=== PATIENT | female | born 1985 ===

== ENCOUNTER 2019-03-28 16:52 | Emergency (ER) | payer OTHER, SELFPAY ==
[2019-03-28 17:08] VITALS: BP 90/62; PULSE 69; RESP 16; TEMP 36.2; O2SAT 100; BMI 23.3
--- NOTE | 2019-03-28 17:16 | PC.NURSE ---
able to ambulate with steady gait.
--- NOTE | 2019-03-28 18:36 | DI.RAD.S_ITS ---
PROCEDURE: XR KNEE RT 3V INDICATIONS: bilateral knee pain, fell on knees 6 days ago, pain, bruise TECHNIQUE: 3 views of the knee were acquired. COMPARISON: [facility], CR, XR THORACIC SPINE 2V, 03/28/2019, 18:44. [facility], CR, XR WRIST RT MIN 3V, 03/28/2019, 18:44. [facility], CR, XR KNEE LT 3V, 03/28/2019, 18:44. [facility], CR, XR LUMBAR SPINE 2-3V, 03/28/2019, 18:44. FINDINGS: Bones: No fractures or dislocations. No suspicious bony lesions. Mild medial and lateral femorotibial joint space narrowing can be seen. On the sunrise view, there is mild patellofemoral joint space narrowing seen. Soft tissues: No joint effusion. No suspicious soft tissue calcifications. IMPRESSION: No acute bony abnormality is seen. Premature joint space narrowing. Dictated by: Fidel Miller M.D. on 03/28/2019 at 19:30 Approved by: Fidel Miller M.D. on 03/28/2019 at 19:31
--- NOTE | 2019-03-28 18:36 | DI.RAD.S_ITS ---
PROCEDURE: XR LUMBAR SPINE 2-3V INDICATIONS: mid to lower back pain, fall 6 days ago TECHNIQUE: 3 views of the lumbar spine were acquired. COMPARISON: [facility], , XR THORACIC SPINE 2V, 03/28/2019, 18:44. FINDINGS: Bones: 5 [id number] vertebrae are present. No vertebral body compression fractures. No suspicious bony lesions. Mild levoconvex scoliotic curvature is noted. Mild disc space narrowing is seen at the L5-S1 level. The disc heights otherwise appear well-preserved. Soft tissues: Overlying bowel gas pattern is normal. No suspicious soft tissue calcifications. IMPRESSION: No acute plain film abnormality is seen. Focal L5-S1 joint space narrowing. Levoconvex lumbar scoliotic curvature. Dictated by: Fidel Miller M.D. on 03/28/2019 at 19:16 Approved by: Fidel Miller M.D. on 03/28/2019 at 19:17
--- NOTE | 2019-03-28 18:36 | DI.RAD.S_ITS ---
PROCEDURE: XR KNEE LT 3V INDICATIONS: bilateral knee pain, fell on knees 6 days ago, pain, bruise TECHNIQUE: 3 views of the knee were acquired. COMPARISON: [facility], CR, XR THORACIC SPINE 2V, 03/28/2019, 18:44. [facility], CR, XR WRIST RT MIN 3V, 03/28/2019, 18:44. [facility], CR, XR KNEE RT 3V, 03/28/2019, 18:44. [facility], CR, XR LUMBAR SPINE 2-3V, 03/28/2019, 18:44. FINDINGS: Bones: No fractures or dislocations. No suspicious bony lesions. There is mild bilateral medial femorotibial joint space narrowing seen. On the sunrise view, there is mild patellofemoral joint space narrowing seen. Soft tissues: No joint effusion. No suspicious soft tissue calcifications. IMPRESSION: No acute bony injury is seen. Premature joint space narrowing. Dictated by: Fidel Miller M.D. on 03/28/2019 at 19:29 Approved by: Fidel Miller M.D. on 03/28/2019 at 19:30
--- NOTE | 2019-03-28 18:38 | DI.RAD.S_ITS ---
PROCEDURE: XR WRIST RT MIN 3V INDICATIONS: fall 6 days ago, pain in wrist, hx of fracture TECHNIQUE: 4 views of the wrist were acquired. COMPARISON: [facility], CR, XR THORACIC SPINE 2V, 03/28/2019, 18:44. [facility], CR, XR KNEE RT 3V, 03/28/2019, 18:44. [facility], CR, XR KNEE LT 3V, 03/28/2019, 18:44. [facility], CR, XR LUMBAR SPINE 2-3V, 03/28/2019, 18:44. FINDINGS: Bones: There is deformity seen of the distal radius, with a sclerotic line. No lucent fractures can be seen. No suspicious lytic or blastic lesions are seen. Scaphoid view: No navicular fractures are seen. Soft tissues: No suspicious soft tissue calcifications. IMPRESSION: No acute fractures are seen. Apparent remote distal radius fracture comment healing change. If there is snuffbox tenderness (or other clinical suspicion for a fracture not seen on these images) then a repeat examination would be recommended in 10 to 14 days, following splinting. Dictated by: Fidel Miller M.D. on 03/28/2019 at 19:31 Approved by: Fidel Miller M.D. on 03/28/2019 at 19:32
--- NOTE | 2019-03-28 18:38 | DI.RAD.S_ITS ---
PROCEDURE: XR THORACIC SPINE 2V INDICATIONS: mid and low back pain, fall 6 days ago TECHNIQUE: 3 views of the thoracic spine were acquired. COMPARISON: [facility], CR, XR LUMBAR SPINE 2-3V, 03/28/2019, 18:44. FINDINGS: Bones: No fractures or dislocations. No suspicious bony lesions. 12 pairs of ribs are noted, and appear intact where visualized. S-shaped scoliotic curvature is seen. Accentuated thoracic kyphosis is seen. Soft tissues: No paravertebral stripe thickening. IMPRESSION: No acute bony injury is seen. Dictated by: Fidel Miller M.D. on 03/28/2019 at 19:18 Approved by: Fidel Miller M.D. on 03/28/2019 at 19:18
--- NOTE | 2019-03-28 18:48 | ED.FALL ---
HPI - Fall <YASMIN GregoryP - Last Filed: 03/29/19 00:49> General Chief Complaint: Fall Stated Complaint: fall at work on 03/21, pain in knees and hands Time Seen by Provider: 03/28/19 18:12 Source: patient Mode of arrival: Ambulatory Limitations: language barrier History of Present Illness HPI Narrative: This is a 33-year-old female Jason-speaking, nonsmoker, who presents to ED complaining bilateral knee pain, bilateral anterior and posterior shoulder, bilateral neck, bilateral wrist, mid to low back pain after she fell forward at work 6 days ago. Patient has been using icy hot and ibuprofen but no relief with pain. Patient is ambulatory but painful to walk on bilateral knees. Patient reports pain as 7 to 8/10 constant which worsen with movement, touched and improves with rest. Patient denies injuring her head, mid cervical tenderness, weakness//tingling/ numbness to extremities. Patient has a history of right wrist fracture and surgical we repaired. LMP 03/15/2019. Related Data Previous Rx's Medication Instructions Recorded cyclobenzaprine 5 - 10 mg PO BID PRN #10 tab 03/28/19 lidocaine 1 patch TOP DAILY #30 each 03/28/19 Allergies Allergy/AdvReac Type Severity Reaction Status Date / Time No Known Drug Allergies Allergy Verified 03/28/19 17:14 Review of Systems <YASMIN GregoryP - Last Filed: 03/29/19 00:49> Review of Systems Narrative: General: Denies fever, chills, fatigue, malaise, sweats. HEENT: Denies sinus pain, ear pain, sore throat, difficulty swallowing, dizziness. Respiratory: Denies dyspnea, cough, wheezing, hemoptysis, sputum. Cardiovascular: Denies chest pain, palpitations, orthopnea, edema. Gastrointestinal: Denies nausea, vomiting, abdominal pain, diarrhea, constipation, melena. : Denies dysuria, frequency, incontinence, hematuria, urinary retention. Musculoskeletal: HPI Skin: Denies rash, skin lesions, or other. Neurologic: Denies weakness, headache, numbness, change in speech, confusion, seizures, incoordination. Psychiatric: No concerning psychosocial issues. 12-point review of systems is negative except for those stated above. Patient History <TANVI Gregory - Last Filed: 03/29/19 00:49> Medical History Right wrist fracture (Acute) Social History Smoking Status: Former smoker Smoking Status: Former smoker Substance Use Type: does not use Exam <TANVI Gregory - Last Filed: 03/29/19 00:49> Narrative Exam Narrative: General appearance: well developed, well nourished, in no acute distress. Head: normocephalic, atraumatic, no scalp lesions, non-tender. ENT: Hearing grossly intact. Nose without bleeding, purulent discharge, septal hematoma or deviation. Mucous membrane moist, no mucosal lesion. Throat without erythema, tonsillar hypertrophy or exudate. Uvula in midline, airway patent. Neck/Thyroid: neck supple, no step-offs, full range of motion, no visible masses or meningeal signs. No JVD, no mid cervical tenderness to palpate, no lymphadenopathy. Skin: no suspicious rashes, lesions over visible areas. Warm and dry and appropriate color for ethnicity. Heart: no clubbing, no cyanosis, no edema. S1 and S2 normal. RRR w/o murmurs, clicks, or bruits. Lungs: Breathing even and unlabored. No stridor. No accessory muscles used. Able to speak in full sentences. Chest: normal shape and expansion. Abdomen: non-obese, non-distended. Neurologic: alert and oriented. 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 Psych: good eye contact, normal affect. Initial Vital Signs Initial Vital Signs: Vital Signs Temperature 97.1 F L 03/28/19 17:08 Pulse Rate 69 03/28/19 17:08 Respiratory Rate 16 03/28/19 17:08 Blood Pressure 90/62 03/28/19 17:08 Pulse Oximetry 100 03/28/19 17:08 Back/Spine/Pelvis Thoracic/Lumbar Spine: thoracic and lumbar spine normal to inspection, No surgical scar(s) present, thoraco-lumbar ROM normal, pain with thoraco-lumbar ROM, paraspinal tenderness, thoraco-lumbar ROM limited (Due to pain) and thoraco-lumbar spasm Extrem Right upper extremity: shoulder/upper arm Details: normal to inspection, tenderness Location: of the A-C joint, of the scapula and of the mid-shaft humerus and normal ROM, elbow/forearm Details: normal to inspection; no swelling, wrist Details: normal to inspection (old surgical scars on dorsal aspect on wrist), normal ROM, normal vascular exam and radial pulse present; no swelling, no lacerations, no ecchymosis, no crepitus and no deformity and hand Details: normal to inspection, neurosensory exam normal, tendon exam normal, vascular exam Details: radial pulse present, normal ROM of fingers and no swelling; no tenderness Left upper extremity: normal to inspection, normal capillary refill, shoulder/upper arm Details: inspection abnormal and tenderness Location: of the A-C joint, of the scapula and of the mid-shaft humerus, elbow/forearm Details: normal to inspection; no tenderness, wrist Details: normal to inspection, tenderness and normal ROM; no swelling, no unusual warmth, no lacerations, no ecchymosis and no crepitus and hand Details: normal to inspection, normal capillary refill, neuromotor exam normal, neurosensory exam normal, tendon exam normal, normal ROM of fingers and no swelling; no unusual warmth; no edema Right lower extremity: knee Details: abnormal to inspection, tenderness, swelling, normal ROM, knee ligament exam normal and ecchymosis; no abrasions, no lacerations and no deformity, lower leg Details: normal to inspection; no tenderness, ankle Details: normal to inspection; no tenderness and foot Details: normal to inspection; no tenderness Left lower extremity: knee Details: abnormal to inspection, tenderness, swelling (boggy in medial knee), normal ROM and ecchymosis; no crepitus, no deformity and no unusual warmth, lower leg Details: normal to inspection; no tenderness, ankle Details: normal to inspection; no tenderness and foot Details: normal to inspection; no tenderness <Stephanie De La Rosa DO - Last Filed: 03/29/19 20:40> Initial Vital Signs Initial Vital Signs: Vital Signs Temperature 97.1 F L 03/28/19 17:08 Pulse Rate 69 03/28/19 17:08 Respiratory Rate 16 03/28/19 17:08 Blood Pressure 90/62 03/28/19 17:08 Pulse Oximetry 100 03/28/19 17:08 Scores <Ketan MaTANVI Hollingsworth - Last Filed: 03/29/19 00:49> GCS [place] coma scale eye opening: Spontaneous Bertin coma scale verbal response: Orientated Bertin coma scale motor response: Obey commands Bertin coma scale total score: 15 Course <Ketan MariTANVI whitney - Last Filed: 03/29/19 00:49> Orders Ordered: Discontinued Medications Acetaminophen (Tylenol) 650 mg PO NOW ONE Stop: 03/28/19 18:37 Last Admin: 03/28/19 19:30 Dose: 650 mg Documented by: ANDI Ketorolac Tromethamine (Toradol) 30 mg IM NOW ONE Stop: 03/28/19 18:37 Last Admin: 03/28/19 19:30 Dose: 30 mg Documented by: ANDI Lidocaine (Lidoderm) 3 each TOP NOW ONE Stop: 03/28/19 19:51 Last Admin: 03/28/19 20:26 Dose: 3 each Documented by: ESTELLA Morphine Sulfate (Morphine) 4 mg IV NOW ONE Stop: 03/28/19 18:56 Last Admin: 03/28/19 20:29 Dose: Not Given Documented by: ANDI Vital Signs Vital signs: Vital Signs - 8 hr 03/28/19 17:08 03/28/19 20:16 Temperature 97.1 F L Pulse Rate 69 63 Respiratory Rate 16 18 Blood Pressure 90/62 Blood Pressure [Left Arm] 113/67 Pulse Oximetry 100 100 <Stephanie De La Rosa DO - Last Filed: 03/29/19 20:40> Orders Ordered: Discontinued Medications Acetaminophen (Tylenol) 650 mg PO NOW ONE Stop: 03/28/19 18:37 Last Admin: 03/28/19 19:30 Dose: 650 mg Documented by: ANDI Ketorolac Tromethamine (Toradol) 30 mg IM NOW ONE Stop: 03/28/19 18:37 Last Admin: 03/28/19 19:30 Dose: 30 mg Documented by: ANDI Lidocaine (Lidoderm) 3 each TOP NOW ONE Stop: 03/28/19 19:51 Last Admin: 03/28/19 20:26 Dose: 3 each Documented by: ESTELLA Morphine Sulfate (Morphine) 4 mg IV NOW ONE Stop: 03/28/19 18:56 Last Admin: 03/28/19 20:29 Dose: Not Given Documented by: KDEBONI Vital Signs Vital signs: Vital Signs - 8 hr 03/28/19 17:08 03/28/19 20:16 Temperature 97.1 F L Pulse Rate 69 63 Respiratory Rate 16 18 Blood Pressure 90/62 Blood Pressure [Left Arm] 113/67 Pulse Oximetry 100 100 MDM - Fall <TANVI Gregory - Last Filed: 03/29/19 00:49> Differential Diagnosis Differential diagnosis: Likely fracture of wrist and other (contusion of knee, fracture of knee, shoulder strain, back strain, wrist sprain) Medical Records Attestation: I reviewed the patient's medical records. Imaging Data XR-Wrist R: Radiologist's Impression: [address] [address] XRay Report Signed Patient: Earline Hall#: [id number] : 1985Acct:[id number] Age/Sex: 33 / FDate of Service: 03/28/19 Loc: ED Accession Number: [id number] Procedure: XR wrist RT min 3V Ordering Provider: Ketan Leon PROCEDURE: XR WRIST RT MIN 3V INDICATIONS: fall 6 days ago, pain in wrist, hx of fracture TECHNIQUE: 4 views of the wrist were acquired. COMPARISON: [facility], CR, XR THORACIC SPINE 2V, 03/28/2019, 18:44. [facility], CR, XR KNEE RT 3V, 03/28/2019, 18:44. [facility], CR, XR KNEE LT 3V, 03/28/2019, 18:44. [facility], CR, XR LUMBAR SPINE 2-3V, 03/28/2019, 18:44. FINDINGS: Bones: There is deformity seen of the distal radius, with a sclerotic line. No lucent fractures can be seen. No suspicious lytic or blastic lesions are seen. Scaphoid view: No navicular fractures are seen. Soft tissues: No suspicious soft tissue calcifications. IMPRESSION: No acute fractures are seen. Apparent remote distal radius fracture comment healing change. If there is snuffbox tenderness (or other clinical suspicion for a fracture not seen on these images) then a repeat examination would be recommended in 10 to 14 days, following splinting. Dictated by: Fidel Miller M.D. on 03/28/2019 at 19:31 Approved by: Fidel Miller M.D. on 03/28/2019 at 19:32 XR-Thoraci: Radiologist's Impression: [address] [address] XRay Report Signed Patient: Earline Hall#: [id number] : 1985Acct:[id number] Age/Sex: 33 / FDate of Service: 03/28/19 Loc: ED Accession Number: [id number] Procedure: XR thoracic spine 2V Ordering Provider: Ketan Leon PROCEDURE: XR THORACIC SPINE 2V INDICATIONS: mid and low back pain, fall 6 days ago TECHNIQUE: 3 views of the thoracic spine were acquired. COMPARISON: [facility], XR LUMBAR SPINE 2-3V, 03/28/2019, 18:44. FINDINGS: Bones: No fractures or dislocations. No suspicious bony lesions. 12 pairs of ribs are noted, and appear intact where visualized. S-shaped scoliotic curvature is seen. Accentuated thoracic kyphosis is seen. Soft tissues: No paravertebral stripe thickening. IMPRESSION: No acute bony injury is seen. Dictated by: Fidel Miller M.D. on 03/28/2019 at 19:18 Approved by: Fidel Miller M.D. on 03/28/2019 at 19:18 XR-Lumbar: Radiologist's Impression: [address] [address] XRay Report Signed Patient: Earline Hall#: [id number] : 1985Acct:[id number] Age/Sex: 33 / FDate of Service: 03/28/19 Loc: ED Accession Number: [id number] Procedure: XR lumbar spine 2-3V Ordering Provider: Ketan Leon PROCEDURE: XR LUMBAR SPINE 2-3V INDICATIONS: mid to lower back pain, fall 6 days ago TECHNIQUE: 3 views of the lumbar spine were acquired. COMPARISON: [facility], XR THORACIC SPINE 2V, 03/28/2019, 18:44. FINDINGS: Bones: 5 [id number] vertebrae are present. No vertebral body compression fractures. No suspicious bony lesions. Mild levoconvex scoliotic curvature is noted. Mild disc space narrowing is seen at the L5-S1 level. The disc heights otherwise appear well-preserved. Soft tissues: Overlying bowel gas pattern is normal. No suspicious soft tissue calcifications. IMPRESSION: No acute plain film abnormality is seen. Focal L5-S1 joint space narrowing. Levoconvex lumbar scoliotic curvature. Dictated by: Fidel Miller M.D. on 03/28/2019 at 19:16 Approved by: Fidel Miller M.D. on 03/28/2019 at 19:17 XR-Knee RT: Radiologist's Impression: [address] [address] XRay Report Signed Patient: Earline Hall#: [id number] : 1985Acct:[id number] Age/Sex: 33 / FDate of Service: 03/28/19 Loc: ED Accession Number: [id number] Procedure: XR knee RT 3V Ordering Provider: Ketan Leon PROCEDURE: XR KNEE RT 3V INDICATIONS: bilateral knee pain, fell on knees 6 days ago, pain, bruise TECHNIQUE: 3 views of the knee were acquired. COMPARISON: [facility], CR, XR THORACIC SPINE 2V, 03/28/2019, 18:44. [facility], CR, XR WRIST RT MIN 3V, 03/28/2019, 18:44. [facility], CR, XR KNEE LT 3V, 03/28/2019, 18:44. [facility], CR, XR LUMBAR SPINE 2-3V, 03/28/2019, 18:44. FINDINGS: Bones: No fractures or dislocations. No suspicious bony lesions. Mild medial and lateral femorotibial joint space narrowing can be seen. On the sunrise view, there is mild patellofemoral joint space narrowing seen. Soft tissues: No joint effusion. No suspicious soft tissue calcifications. IMPRESSION: No acute bony abnormality is seen. Premature joint space narrowing. Dictated by: Fidel Miller M.D. on 03/28/2019 at 19:30 Approved by: Fidel Miller M.D. on 03/28/2019 at 19:31 XR-Knee LT: Radiologist's Impression: [address] [address] XRay Report Signed Patient: Earline Hall#: [id number] : 1985Acct:[id number] Age/Sex: 33 / FDate of Service: 03/28/19 Loc: ED Accession Number: [id number] Procedure: XR knee LT 3V Ordering Provider: Ketan Leon PROCEDURE: XR KNEE LT 3V INDICATIONS: bilateral knee pain, fell on knees 6 days ago, pain, bruise TECHNIQUE: 3 views of the knee were acquired. COMPARISON: [facility], CR, XR THORACIC SPINE 2V, 03/28/2019, 18:44. [facility], CR, XR WRIST RT MIN 3V, 03/28/2019, 18:44. [facility], CR, XR KNEE RT 3V, 03/28/2019, 18:44. [facility], CR, XR LUMBAR SPINE 2-3V, 03/28/2019, 18:44. FINDINGS: Bones: No fractures or dislocations. No suspicious bony lesions. There is mild bilateral medial femorotibial joint space narrowing seen. On the sunrise view, there is mild patellofemoral joint space narrowing seen. Soft tissues: No joint effusion. No suspicious soft tissue calcifications. IMPRESSION: No acute bony injury is seen. Premature joint space narrowing. Dictated by: Fidel Miller M.D. on 03/28/2019 at 19:29 Approved by: Fidel Miller M.D. on 03/28/2019 at 19:30 MDM Narrative Medical decision making narrative: Language translation line contacted for translation services. This is a 33 year old female who had fell forward and landed on bilateral knees while fall on out stretched bilateral hands 6 days ago. 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 Patient had mild ecchymosis in swollen right knee and slightly boggy left knee. She was able to flex and extend bilateral knees the patient reports discomfort with walking. Negative bilateral x-ray test for fractures or dislocation. Sensation and distal pulses were intact. Otherwise, benign physical exam in bilateral wrists with good pulses, sensation, mobility. Patient had history of fracture on right wrist with surgical repair. X-ray test was obtained on right wrist with negative fracture or dislocation. Patient complain of bilateral shoulder pain mother was able to forward flex, abduct, rotate internally and externally without much difficulty. Patient complain of bilateral upper arm discomfort with benign physical exam. Patient denies tingling, numbness, weakness to fingertips. X-ray test was deferred. Patient complain of bilateral cervical neck tenderness but denied with cervical tenderness to palpate. No x-ray test was deferred. Thoraci and lumbar back xray tests did not show acute findings. Patient was medicated with Tylenol, IM Toradol and Lidocaine patches on bilateral neck and low back. Patient reports improved discomfort. Patient given work note off note till Monday. Discharged to home with Flexeril and lidocaine patch for as needed use and advised to use [id number] Tylenol or Motrin. Return precautions were discussed with the patient and patient verbalized understanding and agrees with treatment plan. L&I documentation is completed and a copy provided to patient. Discharge Plan Departure Patient Disposition: Home Clinical Impression: Shoulder strain Qualifiers: Encounter type: initial encounter Laterality: unspecified laterality Qualified Code(s): S46.919A - Strain of unspecified muscle, fascia and tendon at shoulder and upper arm level, unspecified arm, initial encounter Back strain Qualifiers: Encounter type: initial encounter Qualified Code(s): S39.012A - Strain of muscle, fascia and tendon of lower back, initial encounter Contusion of knee Qualifiers: Encounter type: initial encounter Laterality: unspecified laterality Qualified Code(s): S80.00XA - Contusion of unspecified knee, initial encounter Strain of both wrists Qualifiers: Encounter type: initial encounter Qualified Code(s): S66.911A - Strain of unspecified muscle, fascia and tendon at wrist and hand level, right hand, initial encounter Discharge Date/Time: 03/28/19 21:45 Instructions: DI for Contusion, DI for Cervical Muscle Strain, DI for Back Strain or Sprain Activity Restrictions/Additional Instructions: You have been diagnosed with [contusion to bilateral wrist, bilateral knees, strain on your shoulder, upper arm, and back from falling during work]. What to do: *Take your medications as directed. You can take Tylenol 650 mg up to 4 times a day as needed for discomfort. Ibuprofen 400 mg 3 to 4 times a day with food needed for discomfort. Flexeril 5-10 mg to relax muscle 1 to 2 times a day. This medicine may cause drowsiness so please do not drive, drink alcohol or operate heavy equipments. Lidocaine patch for pain is stays on for 12 hours and off for 12 hours. *Follow up with your primary care provider in 2-3 days, call for an appointment. Let them know you were seen in the ED and that we asked you to be seen in follow up. *Return to ED if you have any new, worsening, or concerning symptoms, such as [increasing pain, chest pain, breathing difficulty, unable to tolerate fluids, fever or any acute concerns]. Prescriptions: New cyclobenzaprine 5 mg tablet 5 - 10 mg PO BID PRN (Reason: muscle spasm) Qty: 10 RF: 0 lidocaine 5 % adhesive patch,medicated 1 patch TOP DAILY Qty: 30 RF: 0 Referrals: [facility] [Outside] Stand Alone Forms: Work Release Note
[2019-03-28] MEDS: ACETAMINOPHEN 325 MG TABLET 650 MG PO (19:30)
[2019-03-28] MEDS: KETOROLAC 60 MG/2 ML VIAL 30 MG IM (19:30)
[2019-03-28 20:16] VITALS: BP 113/67; PULSE 63; RESP 18; O2SAT 100
[2019-03-28] MEDS: LIDOCAINE PATCH 1 EACH ADH..PATCH 3 EACH TOP (20:26)
== END 2019-03-28 21:45 | disposition home or self-care (01) ==
PROVIDERS: Emergency Provider Nurse Practitioner Family
DX: S46.919A Strain of unspecified muscle, fascia and tendon at shoulder and upper arm level, unspecified arm, initial encounter (principal); S39.012A Strain of muscle, fascia and tendon of lower back, initial encounter; S80.00XA Contusion of unspecified knee, initial encounter; S66.911A Strain of unspecified muscle, fascia and tendon at wrist and hand level, right hand, initial encounter; W19.XXXA Unspecified fall, initial encounter; Y99.0 Civilian activity done for income or pay
CPT/HCPCS: 72070; 72100; 73110; 73562; 96372; 99283; J1885